=== PATIENT | female | born 1990 | race Two or more races ===

== ENCOUNTER → 2022-02-07 | Emergency (ER) | payer MEDICAID, OTHER ==
[~2022-02-07] VITALS: Ht 157.5 cm; Wt 92.0 kg
[~2022-02-07] MED LIST: ALBUTEROL SULF 2.5 MG/0.5ML(0.5%) NEB SOLN NEB ONE; IPRATROPIUM BROM 0.5 MG/2.5ML INH SOL NEB ONE
[2022-02-07 16:03] VITALS: BP 107/65
== END | disposition left against medical advice (07) ==
LOC: ER 15:29
DX: J45.909 Unspecified asthma, uncomplicated (principal); Z53.21 Procedure and treatment not carried out due to patient leaving prior to being seen by health care provider
CPT/HCPCS: 94640; J7644